=== PATIENT | female | born 1955 | race Caucasian/White ===

== ENCOUNTER 2021-05-03 10:33 | Emergency (ER) | payer MEDICARE, SELFPAY ==
[2021-05-03] MEDS ORDERED: Ketorolac Tromethamine 30 MG/ML VIAL ONE (11:44)
== END 2021-05-03 11:52 | disposition home or self-care (01) ==
LOC: NAV ERS 10:33
DX: J06.9 Acute upper respiratory infection, unspecified (principal); H65.93 Unspecified nonsuppurative otitis media, bilateral; I10 Essential (primary) hypertension; Z87.891 Personal history of nicotine dependence; Z79.899 Other long term (current) drug therapy
CPT/HCPCS: 96372; 99283; J1885